=== PATIENT | female | born 1965 | race Caucasian/White ===

== ENCOUNTER 2016-11-12 07:09 | Day surgery (SDC) | payer MEDICAID ==
[2016-11-09 15:21] VITALS: BMI 22.4
[~2016-11-12 07:09] MED LIST: LACTATED RINGERS 1,000 ML IV SCH
[2016-11-12 07:22] VITALS: TEMP 97.8
[2016-11-12] MEDS ORDERED: LACTATED RINGERS 1,000 ML IV ONE (07:29)
[2016-11-12] MEDS ORDERED: LIDOCAINE 1% INJ 10MG/ML (20 ML MDV) ONE (07:34)
[2016-11-12] MEDS ORDERED: PROPOFOL 10 MG/ML 20 ML VIAL IV ONE (07:34)
--- NOTE | 2016-11-12 07:42 | P.GSHP ---
History of Present Illness H&P Date: 11/12/16 Chief Complaint: GERD 51 yrs old female presents to discuss EGD. She recently moved to the area. Prior EGD at outside facility in 11/18 showed clinical Lara's disease, bx was negative. She has reflux symptoms well controlled with PPI. 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 Physically active, runner. - Review of Systems Comment: Constitutional: No fever, chills or rigors. No weight loss or loss of appetite. HEENT: No difficulty with hearing, vision and swallowing. Lymphatic: No axillary, inguinal and cervical swellings. Endocrine: No thyroid disorders. Denies history of diabetes. Respiratory: No chest pain, shortness of breath, and cough. No hemoptysis. Cardiovascular: No palpitations, irregular HR Gastrointestinal: Has heartburn. No change in bowel habits. No nausea or vomiting. Genitourinary: No increase in urinary frequency or urgency. No hematuria. Musculoskeletal: No back pain, joint stiffness or pain. Neurologic: No history of seizure disorder and headaches. Psychiatric: Denies depression or anxiety . No suicidal ideation. Hematologic: Denies any abnormal mucosal bleeding or easy bruising. 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 hernia, lt bunionectomy Past Anesthesia/Blood Transfusion Reactions: No Reported Reaction Additional Past Anesthesia/Blood Transfusion Reaction / Comment(s): vertigo Smoking Status: Former smoker Past Alcohol Use History: Occasional Additional Past Alcohol Use History / Comment(s): smoked 6 months <1ppd quit 10 years ago Past Drug Use History: None Reported - Past Family History Mother Family Medical History: No Reported History Medications and Allergies Home Medications Medication Instructions Recorded Confirmed Type Albuterol Sulfate [Proair Hfa] 2 puff INHALATION DAILY PRN 11/09/16 11/09/16 History Ascorbic Acid [Vitamin C] 500 mg PO DAILY 11/09/16 11/09/16 History Aspirin [Adult Low Dose Aspirin EC] 81 mg PO DAILY 11/09/16 11/09/16 History Calcium Carbonate [Calcium] 600 mg PO DAILY 11/09/16 11/09/16 History Cholecalciferol [Vitamin D3] 1,000 unit PO DAILY 11/09/16 11/09/16 History FLUoxetine HCL [PROzac] 20 mg PO DAILY 11/09/16 11/09/16 History Omeprazole 20 mg PO DAILY 11/09/16 11/09/16 History Vitamin E 1,000 unit PO DAILY 11/09/16 11/09/16 History cloNIDine HCL [Catapres] 0.1 mg PO BID 11/09/16 11/09/16 History Allergies Allergy/AdvReac Type Severity Reaction Status Date / Time Sulfa (Sulfonamide Allergy Rash/Hives Verified 11/09/16 14:51 Antibiotics) Surgical - Exam Vital Signs Temp Pulse Resp BP Pulse Ox 97.8 F 82 18 108/67 99 11/12/16 07:20 11/12/16 07:20 11/12/16 07:20 11/12/16 07:20 11/12/16 07:20 Patient is a 51-year-old female. Constitutional: General Appearance: healthy-appearing, well-nourished, and well- developed. Level of Distress: NAD. Ambulation: ambulating normally. Psychiatric: Insight: good judgement. Orientation: to time, place, and person. Head: Head: normocephalic and atraumatic. Eyes: Lids and Conjunctivae: no discharge or pallor and non-injected. Sclerae: non-icteric. ENMT: Oropharynx: moist mucous membranes. Abdomen: Bowel Sounds: normal. Inspection and Palpation: no tenderness or guarding and soft and non-distended; surgical incision well healed. Musculoskeletal:: Motor Strength and Tone: normal and normal tone. Joints, Bones , and Muscles: normal movement of all extremities. Extremities: no cyanosis or edema. Neurologic: Gait and Station: normal gait and station. Cranial Nerves: grossly intact. Assessment and Plan Plan: 1. Prior reports reviewed 2. Continue daily PPI 3. EGD with bx in 4. Stop aspirin 7 days prior to the procedure 1. Gastro-esophageal reflux disease with esophagitis K21.0: Gastro-esophageal reflux disease with esophagitis 2. Aneurysm of internal carotid artery I67.1: Cerebral aneurysm, nonruptured
[2016-11-12 08:00] VITALS: RESP 16
[2016-11-12 08:17] VITALS: BP 103/58; PULSE 57
--- NOTE | 2016-11-24 08:56 | P.OP ---
Date of Procedure: 11/12/16 Preoperative Diagnosis: GERD H/O Lara's esophagus Postoperative Diagnosis: Same Procedure(s) Performed: EGD with biopsy Implants: NA Anesthesia: MAC Surgeon: Varsha Eric Pathology: other Condition: stable Disposition: PACU Indications for Procedure: 51 yrs old female presents to discuss EGD. She recently moved to the area. Prior EGD at outside facility in 11/18 showed clinical Lara's disease, bx was negative. She has reflux symptoms well controlled with PPI. 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 Physically active, runner. Informed consent obtained and patient elected to undergo the procedure. Operative Findings: 1. Distal esophagitis 2. Hill grade 2 hiatal hernia Description of Procedure: A timeout was performed to verify the correct patient and correct procedure. Patient was on continuous vitals and pulse ox monitoring throughout the procedure. She was placed in lateral decubitus position and an oral bite block was inserted. A well-lubricated Olympus upper endoscope was passed orally. The esophagus was intubated without difficulty. The vocal cords were visualised and protected at all times. The endoscope was passed beyond the pylorus into the first and second portion of the duodenum. No abnormality was noted in the duodenum mucosa. Random bx taken from the duodenum Two random biopsies were taken from the gastric antrum using cold biopsy forceps. The scope was then retroflexed. Hillgrade 2 hiatal hernia was noted . No mass, active ulcer or bleeding stigmata noted within the gastric lumen. The GE junction is measured at 36 cm from the incisors and diaphragmatic impression at 39 cms . Distal esophagitis noted. 4 quadrant biopsy taken using cold biopsy forceps . The endoscope was gradually withdrawn. No abnormality identified in the esophagus. Patient tolerated the procedure well and was taken to post anesthesia care unit in stable condition. FINAL DIAGNOSIS: 1. Hill Grade 2 Hiatal hernia 2. Gastro esophageal reflux disease SPECIMEN: Antral biopsy Duodenum biopsy Distal esophagus biopsy Final Pathologic Diagnosis A. DUODENUM, BIOPSY: MATURE SMALL BOWEL MUCOSA WITHOUT HISTOPATHOLOGIC CHANGES. B. GASTRIC ANTRUM, BIOPSY: MILD CHRONIC GASTRITIS. IMMUNOPEROXIDASE STAIN NEGATIVE FOR HELICOBACTER PYLORI ORGANISMS (CONTROLS APPROPRIATE). C. DISTAL ESOPHAGUS, BIOPSY: MATURE GASTRIC GLANDULAR MUCOSA WITH CHRONIC INFLAMMATION AND SUPERFICIAL FRAGMENTS OF INTESTINAL TYPE MUCOSA CONSISTENT WITH DUODENAL CONTAMINANT. NEGATIVE FOR INTESTINAL METAPLASIA. SQUAMOUS MUCOSA NOT PRESENT FOR EVALUATION.
== END 2016-11-12 09:01 | disposition home or self-care (01) ==
LOC: ORWHC2ENDO 07:09
PROVIDERS: ATTEND Surgery
DX: K21.0 Gastro-esophageal reflux disease with esophagitis (principal); K29.50 Unspecified chronic gastritis without bleeding; K44.9 Diaphragmatic hernia without obstruction or gangrene; I10 Essential (primary) hypertension; I67.1 Cerebral aneurysm, nonruptured; J45.909 Unspecified asthma, uncomplicated; F39 Unspecified mood [affective] disorder; Z88.2 Allergy status to sulfonamides; Z79.82 Long term (current) use of aspirin; Z79.899 Other long term (current) drug therapy
CPT/HCPCS: 88305; 88342; 43239; J2001; J2704; 99153

== ENCOUNTER → 2016-12-04 | Outpatient (CLI) | payer MEDICAID ==
--- NOTE | 2016-12-07 10:34 | MM ---
Reason for exam: screening (asymptomatic). Last mammogram was performed 1 year and 1 month ago. History: Patient is postmenopausal. Family history of breast cancer in maternal aunt at age 58. Took estrogen for 1 year beginning at age 49. Physical Findings: A clinical breast exam by your physician is recommended on an annual basis and results should be correlated with mammographic findings. MG 3D Screening Mammo W/Cad Bilateral CC and MLO view(s) were taken. Prior study comparison: November 14, 2015, mammogram, performed at [facility]. October 24, 2014, mammogram, performed at [facility]. The breast tissue is heterogeneously dense. This may lower the sensitivity of mammography. There is no discrete abnormality. ASSESSMENT: Negative, BI-RAD 1 RECOMMENDATION: Routine screening mammogram of both breasts in 1 year.
== END | disposition home or self-care (01) ==
LOC: RADMAMWWP 12:18
PROVIDERS: ATTEND Family Medicine
DX: Z12.31 Encounter for screening mammogram for malignant neoplasm of breast (principal)
CPT/HCPCS: 77063; G0202

== ENCOUNTER → 2017-10-25 | Outpatient (CLI) | payer MEDICAID ==
--- NOTE | 2017-10-25 17:38 | CT ---
EXAMINATION TYPE: CT angio chest DATE OF EXAM: 10/25/2017 COMPARISON: NONE HISTORY: Follow up for enlarged lymph nodes. Family history of thoracic aortic aneurysm. CT DLP: 286.10 mGycm. Automated Exposure Control for Dose Reduction was Utilized. CONTRAST: CTA scan of the thorax is performed without and with IV Contrast, patient injected with 100 mL of Omn ipaque 350, pulmonary embolism protocol. Three-D reconstructed images are created on an independent w orkstation and reviewed. FINDINGS: LUNGS: The lungs are grossly clear, there is no concerning parenchymal mass or nodule identified. T here is no pleural effusion or pneumothorax seen. The tracheobronchial tree is patent. MEDIASTINUM: There is satisfactory enhancement of the pulmonary artery and its branches, there is no CT evidence for pulmonary embolism. Main pulmonary artery is not dilated. There are no greater than 1 cm hilar or mediastinal lymph nodes. No cardiomegaly or pericardial effusion is seen. Ascending a gabriel measures up to 3.2 cm in diameter axial image 26. OTHER: Slight scoliotic curvature seen on coronal images. Surgical clips or less likely calcified lef t axillary lymph nodes are noted. IMPRESSION: No CT evidence for thoracic aortic aneurysm. No suspicious thoracic adenopathy. No acute pulmonary process.
== END | disposition home or self-care (01) ==
LOC: RADCTMAIN 13:44
PROVIDERS: ATTEND Family Medicine
DX: R59.0 Localized enlarged lymph nodes (principal)
CPT/HCPCS: 71275; Q9967

== ENCOUNTER 2017-10-26 07:46 | Day surgery (SDC) | payer MEDICAID ==
[2017-10-21 16:07] VITALS: BMI 23.9
[~2017-10-26 07:46] MED LIST changes: +LIDOCAINE 1% 20 ML VIAL (10MG/ML) FOR IV START INTRADERMA PRN
[2017-10-26 08:14] VITALS: TEMP 98.3
[2017-10-26] MEDS ORDERED: LIDOCAINE 1% INJ 10MG/ML (20 ML MDV) ONE (08:47)
[2017-10-26] MEDS ORDERED: PROPOFOL 10 MG/ML 20 ML VIAL IV ONE (08:47)
--- NOTE | 2017-10-26 09:01 | P.OP ---
Date of Procedure: 10/26/17 Preoperative Diagnosis: GERD Postoperative Diagnosis: Same Procedure(s) Performed: EGD with biopsy Anesthesia: MAC Surgeon: Varsha Eric Condition: stable Disposition: PACU Indications for Procedure: 52 yrs old female presents for surveillance EGD. Prior EGD in 11/18 showed clinical Lara's disease, bx was negative. She had follow up EGD in 11/2016 .She has reflux symptoms well controlled with PPI. Informed consent obtained and patient elected to undergo the procedure. Operative Findings: Hill grade 1 hiatal hernia Description of Procedure: A timeout was performed to verify the correct patient and correct procedure. Patient was on continuous vitals and pulse ox monitoring throughout the procedure. She was placed in lateral decubitus position and an oral bite block was inserted. A well-lubricated Olympus upper endoscope was passed orally. The esophagus was intubated without difficulty. The vocal cords were visualised and protected at all times. The endoscope was passed beyond the pylorus into the first and second portion of the duodenum. No abnormality was noted in the duodenum mucosa. Two random biopsies were taken from the gastric antrum using cold biopsy forceps. The scope was then retroflexed. Hillgrade 1 hiatal hernia was noted . No mass, active ulcer or bleeding stigmata noted within the gastric lumen. The GE junction is measured at 36 cm from the incisors and diaphragmatic impression at 38 cms . No distal esophagitis noted. 2 biopsies taken using cold biopsy forceps from GE junction . The endoscope was gradually withdrawn. No abnormality identified in the esophagus. Patient tolerated the procedure well and was taken to post anesthesia care unit in stable condition. FINAL DIAGNOSIS: 1. Hill Grade 1 Hiatal hernia 2. Gastro esophageal reflux disease SPECIMEN: Antrum biopsy GE junction biopsy RECOMMENDATION: 24 hr pH and esophageal manometry test Final Pathologic Diagnosis A. GASTRIC MUCOSA, ANTRUM (ENDOSCOPIC BIOPSY): NO SIGNIFICANT DIAGNOSTIC ALTERATIONS. NO HELICOBACTER-LIKE ORGANISMS ARE IDENTIFIED BY IMMUNOSTAIN (CONTROLS APPROPRIATE). B. SQUAMOUS AND GASTRIC MUCOSA, ESOPHAGUS (ENDOSCOPIC BIOPSY): PATCHY MILD ESOPHAGO-GASTRITIS; NO GOBLET CELL METAPLASIA, DYSPLASIA OR MALIGNANCY IDENTIFIED.
[2017-10-26 09:23] VITALS: BP 107/78; PULSE 70; RESP 18
== END 2017-10-26 10:03 | disposition home or self-care (01) ==
LOC: ORWHC2ENDO 07:46
PROVIDERS: ATTEND Surgery
DX: K21.0 Gastro-esophageal reflux disease with esophagitis (principal); K29.70 Gastritis, unspecified, without bleeding; K44.9 Diaphragmatic hernia without obstruction or gangrene; I67.1 Cerebral aneurysm, nonruptured; J45.990 Exercise induced bronchospasm; Z88.2 Allergy status to sulfonamides; Z79.82 Long term (current) use of aspirin; Z79.899 Other long term (current) drug therapy; Z87.891 Personal history of nicotine dependence; Z98.51 Tubal ligation status; Z90.710 Acquired absence of both cervix and uterus
CPT/HCPCS: 88305; 88342; 43239; J2001; J2704

== ENCOUNTER → 2017-12-08 | Outpatient (CLI) | payer MEDICAID ==
--- NOTE | 2017-12-09 12:05 | MM ---
Reason for exam: screening (asymptomatic). Last mammogram was performed 1 year ago. History: Patient is postmenopausal. Family history of breast cancer in maternal aunt at age 58. Took estrogen for 1 year beginning at age 49. Physical Findings: A clinical breast exam by your physician is recommended on an annual basis and results should be correlated with mammographic findings. MG 3D Screening Mammo W/Cad Bilateral CC and MLO view(s) were taken. Prior study comparison: December 04, 2016, bilateral MG 3d screening mammo w/cad. November 14, 2015, mammogram, performed at [facility]. The breast tissue is heterogeneously dense. This may lower the sensitivity of mammography. Finding: There is a 9 mm equal density (isodense) mass in the posterior, central position of the right breast. ASSESSMENT: Incomplete: need additional imaging evaluation, BI-RAD 0 RECOMMENDATION: Special view mammogram of the right breast. If lesion persists on supplemental views, image directed ultrasound is recommended. [facility] will attempt to contact patient to return for supplemental views and ultrasound if indicated.
== END | disposition home or self-care (01) ==
LOC: RADMAMWWP 09:38
PROVIDERS: ATTEND Family Medicine
DX: Z12.31 Encounter for screening mammogram for malignant neoplasm of breast (principal)
CPT/HCPCS: 77063; 77067

== ENCOUNTER → 2017-12-15 | Outpatient (CLI) | payer MEDICAID ==
--- NOTE | 2017-12-15 11:38 | MM ---
Reason for exam: additional evaluation requested from abnormal screening. Last mammogram was performed less than 1 month ago. History: Patient is postmenopausal. Family history of breast cancer in maternal aunt at age 58. Benign excisional biopsy of the left breast, 1991. Took estrogen for 1 year beginning at age 49. Physical Findings: Nurse did not find any significant physical abnormalities on exam. MG 3D Work Up W/Cad RT LM, XCCL, and spot compression MLO view(s) were taken of the right breast. Prior study comparison: December 08, 2017, bilateral MG 3d screening mammo w/cad. December 04, 2016, bilateral MG 3d screening mammo w/cad. The breast tissue is heterogeneously dense. This may lower the sensitivity of mammography. Finding: There is a 9 mm equal density, partially obscured round mass located 7 cm from the nipple in the outer quadrant, posterior position of the right breast. New finding since December 04, 2016. These results were verbally communicated with the patient and result sheet given to the patient on 12/15/17. ASSESSMENT: Incomplete: need additional imaging evaluation, BI-RAD 0 RECOMMENDATION: Ultrasound of the right breast.
--- NOTE | 2017-12-15 11:40 | USB ---
Reason for exam: additional evaluation requested from abnormal screening. History: Patient is postmenopausal. Family history of breast cancer in maternal aunt at age 58. Benign excisional biopsy of the left breast, 1991. Took estrogen for 1 year beginning at age 49. US Breast Workup Limited RT Right breast ultrasound demonstrates a 1.0 x 0.7 x 0.8cm solid lesion at 9 o'clock. These results were verbally communicated with the patient and result sheet given to the patient on 12/15/17. ASSESSMENT: Suspicious, BI-RAD 4 RECOMMENDATION: Surgical consultation and ultrasound core biopsy of the right breast. Called Dr. Mckenna with mammographic findings and has scheduled an appointment for the patient for 12/23/17 at 1:[address] Hickman. PRELIMINARY REPORT CALLED AND FAXED TO DR. HICKMAN ON 12/15/17.
== END | disposition home or self-care (01) ==
LOC: RADMAMWWP 09:23
PROVIDERS: ATTEND Family Medicine
DX: R92.8 Other abnormal and inconclusive findings on diagnostic imaging of breast (principal)
CPT/HCPCS: 77065; 76642; G0279

== ENCOUNTER → 2018-01-03 | Day surgery (SDC) | payer MEDICAID ==
[2018-01-03 11:49] VITALS: RESP 16; BMI 24.1
--- NOTE | 2018-01-03 13:33 | USB ---
EXAMINATION TYPE: US biopsy breast VAD RT, MG diagnostic mammo RT wo CAD DATE OF EXAM: 01/03/2018 CLINICAL HISTORY: R92.8 Previous Abnormal Mammogram. TECHNIQUE: Ultrasound guided core biopsy of right breast. COMPARISON: 12/15/2017 and 12/08/2017 FINDINGS: The procedure of ultrasound guided core biopsy was explained to the patient. Benefits, alt ernatives, and risks were discussed. An informed consent was then obtained. Preprocedural timeout w as performed. The patient was placed in supine positioning for imaging and for the procedure. The overlying skin w as prepped and draped in usual sterile fashion. 10 cc of lidocaine buffered with bicarbonate was used as anesthetic into the skin and subcutaneous tissue up to a 1.0 x 0.7 x 0.8 cm solid mass at the 9:0 0 position within the right breast. Under ultrasound guidance, a 12-gauge vacuum assisted biopsy gun device was used to obtain 4 core elise ples. Following this, a ribbon-shaped biopsy marker was left in lesion. The patient tolerated the procedure well without any immediate complication. The patient was kept in the radiology department for short stay after the procedure and then discharged home in stable condi tion. Postprocedure mammogram demonstrates appropriate placement of the biopsy marker without migrat ion. IMPRESSION: Successful, uncomplicated ultrasound guided core biopsy of a 1.0 x 0.7 x 0.8 cm solid mas s at the 9:00 position within the right breast, full pathology results to follow.
[2018-01-03 14:40] VITALS: BP 101/66; PULSE 60; TEMP 98.9
== END ==
LOC: RADUSWWP 11:18
PROVIDERS: ATTEND Surgery
DX: D24.1 Benign neoplasm of right breast (principal); N60.11 Diffuse cystic mastopathy of right breast
CPT/HCPCS: 77065; 19083; A4648; J2001; 88305

== ENCOUNTER → 2018-04-06 | Outpatient (CLI) | payer MEDICAID ==
--- NOTE | 2018-04-06 10:38 | XR ---
EXAMINATION TYPE: XR chest 2V DATE OF EXAM: 04/06/2018 COMPARISON: None HISTORY: 52-year-old female with chest pain TECHNIQUE: Frontal and lateral views FINDINGS: The cardiomediastinal silhouette, aorta, and pulmonary vasculature are within normal limits. Lungs an d pleural spaces are clear. IMPRESSION: No acute cardiopulmonary process.
== END | disposition home or self-care (01) ==
LOC: RADXRMAIN 09:02
PROVIDERS: ATTEND Family Medicine
DX: R07.89 Other chest pain (principal)
CPT/HCPCS: 71046

== ENCOUNTER → 2018-06-08 | Outpatient (CLI) | payer MEDICAID ==
[2018-06-08 13:21] VITALS: BP 104/68; PULSE 71; BMI 24.0
--- NOTE | 2018-06-08 13:35 | P.GSHP ---
History of Present Illness H&P Date: 06/08/18 The patient is a 52-year-old white female who is status post right breast ultrasound core biopsy on [id number]. The pathology revealed a fibroadenoma and Bactrim fibrocystic changes. It is recommended at that time that she have a follow-up mammogram of the right breast in 6 months time. The patient has no complaints at this time. She does not feel anything of concern in her breast. No evidence of any trauma or infection in the breast. Family History: twin sister: signet cell adenocarcinoma Hormonal history: menarche: 9 : 3, 1 miscarriage at 17, first live at 24, breast fed: yes menopause: hysterectomy at 39, done for fibroids no cancer BCP: 10 years hormones: none Past Surgical History: 1. vaginal hysterectomy 2. sacroilio-plasty 3. tubal 4. left breast biopsy 5. RIH 6. Bilateral thumb surgery 7. Left axillary lymph node biopsy Past Medical History: 1. Left cavernous sinus aneurysm being followed MRI every 5 years 2. Patient has been followed by medical oncologist for some questionable atypical cells on lymph node biopsy, she was told that she did not need to worry about this and not even needed to follow up with him Social History: smoke: 1 PPD alcohol: 1 drink/night drugs: none - Constitutional Constitutional: Denies chills, Denies fever - EENT Eyes: denies blurred vision, denies pain Ears: deny: decreased hearing, tinnitus Ears, nose, mouth and throat: Denies headache, Denies sore throat - Breasts Breasts: bilateral: as per HPI - Cardiovascular Cardiovascular: Denies chest pain, Denies shortness of breath - Respiratory Respiratory: Denies cough, Denies 7 - Gastrointestinal Gastrointestinal: Denies abdominal pain, Denies diarrhea, Denies nausea, Denies vomiting - Genitourinary (Female) Genitourinary: Denies dysuria, Denies hematuria - Menstruation Menstruation: Reports post hysterectomy - Musculoskeletal Comment: arthritis in hands - Integumentary Integumentary: Denies pruritus, Denies rash - Neurological Neurological: Denies numbness, Denies weakness - Endocrine Endocrine: Denies fatigue, Denies weight change - Hematologic/Lymphatic Comment: baby aspirin - Allergic/Immunologic Comment: as above Past Medical History Past Medical History: Asthma, GERD/Reflux Additional Past Medical History / Comment(s): Hiatal Hernia. 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 History of Any Multi-Drug Resistant Organisms: None Reported Past Surgical History: Adenoidectomy, Breast Surgery, Hernia Repair, Hysterectomy, Orthopedic Surgery, Tonsillectomy, Tubal Ligation Additional Past Surgical History / Comment(s): rt rotator cuff repair, abdominoplasty, mary hand arthroplasty, lt breast biopsy-benign excisional. lt bunionectomy, EGD Past Anesthesia/Blood Transfusion Reactions: No Reported Reaction Additional Past Anesthesia/Blood Transfusion Reaction / Comment(s): Hx vertigo Past Psychological History: No Psychological Hx Reported Additional Psychological History / Comment(s): PAXIL use for hot flashes Smoking Status: Light tobacco smoker Past Alcohol Use History: Occasional Past Drug Use History: None Reported - Past Family History Mother Family Medical History: No Reported History Medications and Allergies Home Medications Medication Instructions Recorded Confirmed Type Albuterol Sulfate [Proair Hfa] 2 puff INHALATION DAILY PRN 11/09/16 01/03/18 History Ascorbic Acid [Vitamin C] 500 mg PO DAILY 11/09/16 01/03/18 History Aspirin [Adult Low Dose Aspirin EC] 81 mg PO DAILY 11/09/16 01/03/18 History Calcium Carbonate [Calcium] 600 mg PO DAILY 11/09/16 01/03/18 History Cholecalciferol [Vitamin D3] 1,000 unit PO DAILY 11/09/16 01/03/18 History Omeprazole 20 mg PO DAILY 11/09/16 01/03/18 History Vitamin E 1,000 unit PO DAILY 11/09/16 01/03/18 History PARoxetine [Paxil] 1 tab PO HS 12/26/17 01/03/18 History Allergies Allergy/AdvReac Type Severity Reaction Status Date / Time Sulfa (Sulfonamide Allergy Rash/Hives Verified 01/03/18 11:34 Antibiotics) Surgical - Exam - General well developed, well nourished, no distress - Eyes normal ocular movement, no icteric - ENT no hearing loss, no congestion - Neck no masses, trachea midline - Respiratory normal respiratory effort, clear to auscultation - Cardiovascular Rhythm: regular Heart Sounds: normal: S1, S2 - Abdomen Abdomen: soft, non tender, no guarding, no rigid, no rebound - Neurologic no disoriented, no combative - Musculoskeletal normal gait, normal posture - Psychiatric oriented to time, oriented to person, oriented to place, speech is normal, memory intact Breast examination: Right breast: Multiple positional exam no dominant masses or nodules of concern Right axilla: No adenopathy of concern Left breast: Multi-positional exam no dominant masses or nodules of concern Left axilla: No adenopathy of concern Assessment and Plan Assessment: Impression: 1. Patient status post right breast core biopsy proximally 6 months ago fibroadenoma 2. History of brain aneurysm follows with brain MRIs 3. History of abnormal adenopathy followed with medical oncologist 4. History of smoking Plan: 1. Right breast mammogram/ultrasound if this is normal we'll see the patient again in 6 months for bilateral mammogram 2. Medical management of medical problems CC: Dr. Aleisha Mckenna
== END | disposition home or self-care (01) ==
LOC: WWCWWP 12:59
PROVIDERS: ATTEND Surgery
DX: Z53.9 Procedure and treatment not carried out, unspecified reason (principal)

== ENCOUNTER → 2018-06-28 | Outpatient (CLI) | payer MEDICAID ==
--- NOTE | 2018-06-28 11:26 | MM ---
Reason for exam: follow-up at short interval from prior study. Last mammogram was performed 6 months ago. History: Patient is postmenopausal. Family history of breast cancer in maternal aunt at age 58. Benign US biopsy breast VAD RT of the right breast, January 03, 2018. Benign excisional biopsy of the left breast, 1991. Took estrogen for 1 year beginning at age 49. Physical Findings: Nurse did not find any significant physical abnormalities on exam. MG 3D Diag Mammo W/Cad RT CC and MLO view(s) were taken of the right breast. Prior study comparison: January 03, 2018, right breast MG diagnostic mammo RT wo CAD. December 15, 2017, right breast MG 3d work up w/cad RT. The breast tissue is heterogeneously dense. This may lower the sensitivity of mammography. Previous ultrasound biopsy in the right breast. There is chronic nodularity in the right breast. No significant new findings when compared with previous films. These results were verbally communicated with the patient and result sheet given to the patient on 06/28/18. ASSESSMENT: Incomplete: need additional imaging evaluation, BI-RAD 0 RECOMMENDATION: Ultrasound of the right breast.
--- NOTE | 2018-06-28 11:39 | USB ---
Reason for exam: additional evaluation requested from abnormal screening. History: Patient is postmenopausal. Family history of breast cancer in maternal aunt at age 58. Benign US biopsy breast VAD RT of the right breast, January 03, 2018. Benign excisional biopsy of the left breast, 1991. Took estrogen for 1 year beginning at age 49. US Breast RT Right complete breast ultrasound includes all four quadrants, the retroareolar region and axilla. Finding demonstrates a 0.8 x 0.5 x 0.9cm hypoechoic lesion at 9 o'clock. These results were verbally communicated with the patient and result sheet given to the patient on 06/28/18. ASSESSMENT: Benign, BI-RAD 2 RECOMMENDATION: Return to routine screening mammogram schedule for both breasts. Back on schedule.
== END | disposition home or self-care (01) ==
LOC: RADMAMWWP 09:21
PROVIDERS: ATTEND Surgery
DX: R92.8 Other abnormal and inconclusive findings on diagnostic imaging of breast (principal)
CPT/HCPCS: 77061; 77065

== ENCOUNTER → 2018-11-15 | Outpatient (CLI) | payer MEDICAID ==
--- NOTE | 2018-11-20 08:31 | MR ---
EXAMINATION TYPE: MR angio head wo con DATE OF EXAM: 11/15/2018 COMPARISON: Prior MRA from outside institution 10/22/2014 HISTORY: Cerebral Aneurysm F/U TECHNIQUE: Time of flight images focusing on the [place] were performed without contrast. Th ree-dimensional post processing on a additional workstation. FINDINGS: The aneurysm at the level of the internal carotid artery on the left at the level medially, anterior cavernous portion as previously described shows a similar appearance and measures approxima tely 4 x 6 mm. Anterior and middle cerebral arteries are patent. Show symmetric appearance. Vertebral arteries patent, basilar artery is patent. IMPRESSION: Stable left internal carotid artery aneurysm.
== END ==
LOC: RADMRIMAIN 19:50
PROVIDERS: ATTEND Family Medicine
DX: I67.1 Cerebral aneurysm, nonruptured (principal)
CPT/HCPCS: 70544

== ENCOUNTER → 2018-12-11 | Outpatient (CLI) | payer MEDICAID ==
--- NOTE | 2018-12-11 13:02 | MM ---
Reason for exam: screening (asymptomatic). Last mammogram was performed 5 months ago. History: Patient is postmenopausal. Family history of breast cancer in maternal aunt at age 58. Benign US biopsy breast VAD RT of the right breast, January 03, 2018. Benign excisional biopsy of the left breast, 1991. Took estrogen for 1 year beginning at age 49. Physical Findings: A clinical breast exam by your physician is recommended on an annual basis and results should be correlated with mammographic findings. MG 3D Screening Mammo W/Cad Bilateral CC and MLO view(s) were taken. Prior study comparison: June 28, 2018, right breast MG 3d diag mammo w/cad RT. January 03, 2018, right breast MG diagnostic mammo RT wo CAD. The breast tissue is heterogeneously dense. This may lower the sensitivity of mammography. There is no discrete abnormality. No significant changes when compared with prior studies. ASSESSMENT: Benign, BI-RAD 2 RECOMMENDATION: Routine screening mammogram of both breasts in 1 year.
== END | disposition home or self-care (01) ==
LOC: RADMAMWWP 07:58
PROVIDERS: ATTEND Family Medicine
DX: Z12.31 Encounter for screening mammogram for malignant neoplasm of breast (principal)
CPT/HCPCS: 77063; 77067

== ENCOUNTER 2018-12-20 12:13 | Day surgery (SDC) | payer MEDICAID ==
[2018-12-18 12:01] VITALS: BMI 23.6
[~2018-12-20 12:13] MED LIST changes: -LACTATED RINGERS 1,000 ML IV SCH
[2018-12-20 13:20] VITALS: TEMP 97.2
[2018-12-20] MEDS: LACTATED RINGERS 1,000 ML IV SCH ×2 (13:29→13:41)
[2018-12-20] MEDS ORDERED: PROPOFOL 10 MG/ML 20 ML VIAL IV ONE (13:43)
[2018-12-20] MEDS ORDERED: LACTATED RINGERS 1,000 ML IV ONE (15:02)
--- NOTE | 2018-12-20 15:13 | P.PCN ---
Date of Procedure: 12/20/18 Description of Procedure: BRIEF HISTORY: 51-year-old female with a history of GERD and prior colonic polyps on colonoscopy who presents for outpatient colonoscopy. The patient had her last colonoscopy in 11/2015 which was significant for polypectomy. She has a twin sister who was diagnosed with appendiceal cancer. Family history of colon cancer in her grandmother and 2 cousins. PROCEDURE PERFORMED: Colonoscopy. PREOPERATIVE DIAGNOSIS: History of colonic polyp, family history of colon cancer, high risk surveillance. ESTIMATED BLOOD LOSS: Minimal. IV sedation per Anesthesia. PROCEDURE: After informed consent was obtained, the patient, was brought into the endoscopy unit. IV sedation was administered by Anesthesia under continuous monitoring. Digital rectal examination was normal. Initially the Olympus CF-190 flexible video colonoscope was then inserted in the rectum, gradually advanced into the cecum without any difficulty. Careful examination was performed as the scope was gradually being withdrawn. Ileocecal valve and the appendiceal orifice were visualized and appeared normal. Prep was excellent. Mucosa of the cecum, ascending colon, transverse colon, descending colon, sigmoid colon, and rectum appeared normal. Sigmoid diverticulosis was noted. Retroflexion was performed in the rectum and no lesions were seen, mild internal hemorrhoids noted. The patient tolerated the procedure well. IMPRESSION: Normal-appearing colon from rectum to cecum, with sigmoid diverticulosis and internal hemorrhoids. RECOMMENDATIONS: Findings of this examination were discussed with the patient and her girlfriend. Okay for high-fiber diet. Repeat colonoscopy in 3-5 given history of colonic polyps and family history of colon cancer. Follow up with Dr Perdomo in the gastroenterology clinic as previously scheduled.
[2018-12-20 15:24] VITALS: BP 115/63; PULSE 63; RESP 16
== END 2018-12-20 16:20 | disposition home or self-care (01) ==
LOC: ORWHC2ENDO 12:13
PROVIDERS: ATTEND Internal Medicine
DX: Z12.11 Encounter for screening for malignant neoplasm of colon (principal); K57.30 Diverticulosis of large intestine without perforation or abscess without bleeding; K64.8 Other hemorrhoids; K21.9 Gastro-esophageal reflux disease without esophagitis; Z87.19 Personal history of other diseases of the digestive system; Z80.0 Family history of malignant neoplasm of digestive organs; Z90.710 Acquired absence of both cervix and uterus; J45.909 Unspecified asthma, uncomplicated; Z87.891 Personal history of nicotine dependence; I67.1 Cerebral aneurysm, nonruptured; R42 Dizziness and giddiness; Z79.82 Long term (current) use of aspirin; Z79.899 Other long term (current) drug therapy; Z88.2 Allergy status to sulfonamides
CPT/HCPCS: J2704; G0105